=== PATIENT | female | born 1945 | race Caucasian/White ===

== ENCOUNTER 2025-05-18 11:27 | Outpatient (CLI) | payer OTHER ==
[2025-05-18 13:27] LABS: BASO % 0.5 % (0.1-1.2); EOS # 0.10 (0.04-0.54); EOS % 1.5 % (0.7-7.0); LYMPH # 1.75 (1.18-3.74); LYMPH % 27.0 % (19.3-53.1); MEAN PLATELET VOLUME 9.20 fl (9.4-12.4); MONO # 0.48 (0.24-0.82); MONO % 7.4 % (4.7-12.5); NEUT # 4.10 (1.56-6.13); NEUT % 63.4 % (34.0-71.1); RED CELL DISTRIBUTION WIDTH 13.5 % (11.6-14.4)
[2025-05-18 13:28] LABS: URINE APPEARANCE Clear; URINE BILIRRUBIN Negative (NEGATIVE); URINE BLOOD Negative; URINE COLOR Yellow; URINE GLUCOSE Negative (NEGATIVE); URINE KETONE Negative (NEGATIVE); URINE LEUKOCYTE Trace; URINE NITRATE Negative; URINE PROTEIN Negative (NEGATIVE); URINE UROBILINOGEN 0.2 E.U./dl
[2025-05-18 13:29] LABS: URINE BACTERIA 62.3 uL (0.0-1933); URINE EPITHELIAL CELLS 11.5 uL (0.0-38.8); URINE RBC 2.4 uL (0.0-20.8); URINE WBC 3.3 uL (0.0-23.2)
[2025-05-18 13:35] LABS: ERYTHROCYTE SEDIMENTATION RATE 10 mm/hr (0-30)
[2025-05-18 13:38] LABS: URINE CAST 0.14 uL (0.0-1.40)
[2025-05-18 13:39] LABS: CREATININE URINE RANDOM 54.9 MG/DL (30-125)
[2025-05-18 14:39] LABS: VITAMIN D3 25 HYDROXY 26.76 ng/ml (30-120)
[2025-05-18 15:09] LABS: ALT/SGPT 26 U/L (12-78); AST/SGOT 21 U/L (15-37); BILIRUBIN TOTAL 0.96 mg/dL (0.3-1.2); BUN CREA RATIO 28 (7.0-25.0); CHOL HDL RATIO 3.3 (0-5.0); CREATININE SERUM 0.71 mg/dL (0.55-1.02); GFR 79.01; GLOBULINA 3.5 G/DL (2.4-3.5); GLUCOSE FASTING 88 mg/dL (65-100); HDL 52 mg/dl (40-60); LDL 103 mg/dl (0-130); OSMOLALITY SERUM 283 MOSM/KG (275-295); T4 FREE 0.99 NG/ML (0.76-1.46); VLDL 15 (0-39)
[2025-05-18 15:10] LABS: TSH 6.970 uIU/mL (0.358-3.74)
[2025-05-20 15:07] LABS: CYCLIC CITRULLINE PEPTIDE 9 units (0-19)
== END 2025-05-18 11:39 | disposition home or self-care (01) ==
LOC: LAB 11:27
PROVIDERS: ATTEND Internal Medicine Endocrinology, Diabetes & Metabolism
DX: E78.2 Mixed hyperlipidemia (principal); R73.01 Impaired fasting glucose; I11.9 Hypertensive heart disease without heart failure; M85.89 Other specified disorders of bone density and structure, multiple sites; D64.9 Anemia, unspecified; E55.9 Vitamin D deficiency, unspecified; M06.9 Rheumatoid arthritis, unspecified; M35.9 Systemic involvement of connective tissue, unspecified

== ENCOUNTER 2025-05-20 09:03 | Outpatient (CLI) | payer OTHER | END 2025-05-20 09:08 | disposition home or self-care (01) | LOC: SONOGRAMA 09:03 | PROVIDERS: ATTEND Internal Medicine Endocrinology, Diabetes & Metabolism | DX: R59.9 Enlarged lymph nodes, unspecified (principal); E89.0 Postprocedural hypothyroidism ==

== ENCOUNTER → 2025-05-20 10:39 | Outpatient (CLI) | payer OTHER | END | disposition home or self-care (01) | LOC: LAB 10:39 | DX: I11.9 Hypertensive heart disease without heart failure (principal); E78.2 Mixed hyperlipidemia; E03.9 Hypothyroidism, unspecified; E79.0 Hyperuricemia without signs of inflammatory arthritis and tophaceous disease; E11.9 Type 2 diabetes mellitus without complications ==

== ENCOUNTER 2025-05-21 14:04 | Outpatient (CLI) | payer OTHER | END 2025-05-21 14:16 | disposition home or self-care (01) | LOC: RAD 14:04 | PROVIDERS: ATTEND Specialist | DX: I63.412 Cerebral infarction due to embolism of left middle cerebral artery (principal); I63.9 Cerebral infarction, unspecified; J45.998 Other asthma ==

== ENCOUNTER → 2025-05-25 | Outpatient (CLI) | payer OTHER | END | disposition home or self-care (01) | LOC: MAMO-SONO 10:16 | PROVIDERS: ATTEND Specialist | DX: N60.39 Fibrosclerosis of unspecified breast (principal); Z12.39 Encounter for other screening for malignant neoplasm of breast; Z12.31 Encounter for screening mammogram for malignant neoplasm of breast ==

== ENCOUNTER → 2025-06-30 | Outpatient (CLI) | payer OTHER | END | disposition home or self-care (01) | LOC: NUCLEAR 07:30 | PROVIDERS: ATTEND Specialist | DX: D05.11 Intraductal carcinoma in situ of right breast (principal) | CPT/HCPCS: 78815; A9552 ==

== ENCOUNTER 2025-07-29 16:14 | Outpatient (CLI) | payer OTHER ==
[~2025-07-29 16:14] MED LIST: SYNTHROID75 MCG PO; VASOTEC20 M1
== END 2025-07-29 17:09 | disposition home or self-care (01) ==
LOC: LAB 16:14
PROVIDERS: ATTEND Specialist
DX: N39.42 Incontinence without sensory awareness (principal)

== ENCOUNTER 2025-07-31 06:10 | Day surgery (SDC) | payer OTHER ==
[2025-07-28 09:57] LABS: BASO % 0.5 % (0.1-1.2); EOS # 0.12 (0.04-0.54); EOS % 1.5 % (0.7-7.0); LYMPH # 1.22 (1.18-3.74); LYMPH % 14.8 % (19.3-53.1); MEAN PLATELET VOLUME 9.30 fl (9.4-12.4); MONO # 0.71 (0.24-0.82); MONO % 8.6 % (4.7-12.5); NEUT # 6.13 (1.56-6.13); NEUT % 74.4 % (34.0-71.1); RED CELL DISTRIBUTION WIDTH 13.2 % (11.6-14.4)
[2025-07-28 10:16] LABS: COVID-19 AG NEGATIVE (NEGATIVE)
[2025-07-28 10:17] LABS: URINE APPEARANCE Turbid; URINE BILIRRUBIN Negative (NEGATIVE); URINE BLOOD Large; URINE COLOR Yellow; URINE GLUCOSE Negative (NEGATIVE); URINE KETONE Negative (NEGATIVE); URINE LEUKOCYTE Large; URINE NITRATE Positive; URINE UROBILINOGEN 1.0 E.U./dl
[2025-07-28 10:18] LABS: URINE BACTERIA 1324.6 uL (0.0-1933); URINE CAST 2.12 uL (0.0-1.40); URINE EPITHELIAL CELLS 17.0 uL (0.0-38.8); URINE RBC 45.4 uL (0.0-20.8); URINE WBC 4696.6 uL (0.0-23.2)
[2025-07-28 10:29] LABS: URINE PROTEIN 100 (NEGATIVE)
[2025-07-28 10:34] LABS: INR 1.14
[2025-07-28 11:03] LABS: ALT/SGPT 22.0 U/L (12-78); AST/SGOT 19.0 U/L (15-37); BILIRUBIN TOTAL 1.48 mg/dL (0.3-1.2); BUN CREA RATIO 22.0 (7.0-25.0); CREATININE SERUM 0.82 mg/dL (0.55-1.02); GFR 66.91; GLOBULINA 3.8 G/DL (2.4-3.5); GLUCOSE FASTING 92.0 mg/dL (65-100); OSMOLALITY SERUM 281.0 MOSM/KG (275-295)
[2025-07-28 13:58] VITALS: BP 159/83
[~2025-07-31] VITALS: Ht 154.9 cm; Wt 57.6 kg
[2025-07-31] MEDS ORDERED: CEFAZOLIN SODIUM 1,000 MG VIAL ONE (08:45)
[2025-07-31] MEDS ORDERED: CHLORHEXIDINE GLUCONATE 120 ML BOTTLE TOP ONE (09:20)
[2025-07-31] MEDS ORDERED: ENALAPRILAT DIHYDRATE 1.25 MG/ML VIAL IV ONE ×2 (13:14→13:59)
[2025-07-31] MEDS ORDERED: hydrALAZINE HCL 20 MG VIAL ONE (14:54)
== END 2025-07-31 16:05 | disposition home or self-care (01) ==
LOC: CIR.AMB 06:10
PROVIDERS: ATTEND Surgery
DX: C50.211 Malignant neoplasm of upper-inner quadrant of right female breast (principal); D48.7 Neoplasm of uncertain behavior of other specified sites

== ENCOUNTER 2025-08-10 14:25 | Outpatient (CLI) | payer OTHER ==
[2025-08-10 14:45] LABS: URINE APPEARANCE Clear; URINE BILIRRUBIN Negative (NEGATIVE); URINE BLOOD Negative; URINE COLOR Yellow; URINE GLUCOSE Negative (NEGATIVE); URINE KETONE Negative (NEGATIVE); URINE LEUKOCYTE Moderate; URINE NITRATE Negative; URINE PROTEIN Negative (NEGATIVE); URINE UROBILINOGEN 1.0 E.U./dl
[2025-08-10 14:48] LABS: URINE BACTERIA 201.3 uL (0.0-1933); URINE EPITHELIAL CELLS 30.9 uL (0.0-38.8); URINE RBC 10.7 uL (0.0-20.8); URINE WBC 26.9 uL (0.0-23.2)
[2025-08-10 14:51] LABS: URINE CAST 0.14 uL (0.0-1.40)
== END 2025-08-10 14:30 | disposition home or self-care (01) ==
LOC: LAB 14:25
PROVIDERS: ATTEND Surgery
DX: N39.0 Urinary tract infection, site not specified (principal)